=== PATIENT | female | born 1940 | race Caucasian/White ===

== ENCOUNTER 2020-12-05 09:14 | Day surgery (SDC) | payer MEDICARE, SELFPAY ==
[2020-11-30 10:31] VITALS: BMI 24.3
--- NOTE | 2020-12-01 13:52 | HO.ANESPROP2 ---
Documented by User: Taylor Preciado 12/01/20 13:53 HPI - Anesthesia Eval Consult details Narrative: 80yo F for Colonoscopy PMFSH Past Medical History Medical History Hypothyroidism Surgical History Surgical History History of esophagogastroduodenoscopy (EGD) History of surgery on right wrist History of tubal ligation Hx of appendectomy Hx of colonoscopy Hx of elbow surgery Social History Social History Advance Directives: No Advance Directives Information Provided: No Advance Directives on File: No Meds Allergies Allergy/AdvReac Type Severity Reaction Status Date / Time No Known Allergies Allergy Verified 11/30/20 10:29 Home Medications Medication Instructions Recorded Confirmed Last Taken Type levothyroxine 1 tab PO DAILY 11/30/20 11/30/20 Unknown History Exam Exam Date and Time: December 01, 2020 1352 Height,Weight and Vital Signs: Height 5 ft 1 in Weight 58.513 kg Assessment and Plan Assessment Anesthesia Assessment: Chart Reviewed Documented by User: Reina Mcleod 12/05/20 10:50 [facility] Past Medical History Medical History Hypothyroidism Family History Family history of problems with anesthesia: No Surgical History Surgical History History of esophagogastroduodenoscopy (EGD) History of surgery on right wrist History of tubal ligation Hx of appendectomy Hx of colonoscopy Hx of elbow surgery History of Problems with Anesthesia: No Social History Social History Advance Directives: No Advance Directives Information Provided: No Advance Directives on File: No Meds Allergies Allergy/AdvReac Type Severity Reaction Status Date / Time No Known Allergies Allergy Verified 11/30/20 10:29 Home Medications Medication Instructions Recorded Confirmed Last Taken Type levothyroxine 1 tab PO DAILY 11/30/20 11/30/20 Unknown History Exam Height,Weight and Vital Signs: Vital Signs Temp Pulse Resp BP Pulse Ox 12/05/20 10:26 99.2 F 68 20 142/72 H 97 Airway Mallampati Class: II TM Dist: >3cm Neck ROM: Full Heart: RRR Lungs: CTAB Assessment and Plan Assessment Anesthesia Assessment: Anesthesia Plan Discussed and Chart Reviewed Final Anesthetic Review NPO: Yes ASA Class: II Final Preanesthetic Review: No Changes in Pt Med Stat, Meds/Allgs Chart Reviewed, Consent Obtained/Reviewed and Anes Risks/Benef Reviewed Patient Risk: Low Procedure Risk: Low Assessment/Block/Sedation in SS: Assess/Block/Sedation-SS Anesthetic Plan Anesthetic Plan: MAC: Disposition: Standard PACU
[2020-12-05 10:26] VITALS: BP 142/72; PULSE 68; RESP 20; TEMP 37.3; O2SAT 97
[2020-12-05 10:39] VITALS: BP 142/72; PULSE 68; RESP 20; TEMP 37.3; O2SAT 97
[2020-12-05] MEDS: Lactated Ringers 1,000 ML 100 ML IVCONT (10:48)
--- NOTE | 2020-12-05 11:51 | PM.OP ---
Brief Operative Note Date of Service: 12/05/20 Pre-op diagnosis: Screening Post-op diagnosis: other (Diverticulosis, Internal hemorrhoids) Procedure: Colonoscopy to cecum Surgeon: Morro Lemus Anesthesia: MAC Estimated blood loss (mL): 0 Pathology: none sent Condition: stable Disposition: PACU
[2020-12-05 11:53] VITALS: BP 113/72; PULSE 82; RESP 12; TEMP 36.1; O2SAT 99
[2020-12-05 12:08] VITALS: BP 125/77; PULSE 60; RESP 16; TEMP 36.1; O2SAT 100
--- NOTE | 2020-12-05 12:09 | OP_ITS ---
SURGEON: Morro Lemus MD INDICATIONS: The patient presents for evaluation of colorectal cancer screening. Full consent has been obtained from her for this, including risks of bleeding and perforation. PREOPERATIVE DIAGNOSIS: Colorectal cancer screening. POSTOPERATIVE DIAGNOSIS: PROCEDURE PERFORMED: Colonoscopy to the cecum. ESTIMATED BLOOD LOSS: COMPLICATIONS: ANESTHESIA: Monitored anesthesia care. ASSISTANTS: SPECIMENS: POSTOPERATIVE DIAGNOSES: Colorectal cancer screening, diverticulosis, and internal hemorrhoids. DESCRIPTION OF PROCEDURE: The patient was placed in the left lateral decubitus position. The digital rectal exam revealed no abnormalities. The Olympus video pediatric colonoscope was entered into the rectum and advanced easily to the cecum. Once in the cecum, I did identify normal-appearing cecal pouch with appendiceal orifice and a normal-appearing ileocecal valve. The entire cecum and ileocecal valve appeared normal. There was transillumination of light deep in the right lower quadrant. The scope was slowly withdrawn assessing all mucosal surfaces carefully. Preparation was excellent. I did not visualize any sign of polyps, colitis, nor angiodysplasia. There was a mild amount of sigmoid diverticulosis. In the rectum, scope was retroflexed visualizing internal hemorrhoids, but no other pathology. The rectal mucosa appeared normal. The scope was straightened out and withdrawn from the patient. She tolerated the procedure well and was returned to the recovery area in stable condition. IMPRESSION: 1. Diverticulosis. 2. Internal hemorrhoids. PLAN: Given the patient's negative exam and her age, I do not think she will need any further screening colonoscopies in the future. She will otherwise see me on a p.r.n. basis. MD URBANO Mandujano/MODL / [id number]
== END 2020-12-05 12:56 | disposition home or self-care (01) ==
PROVIDERS: PCP Nurse Practitioner Family; Visit Provider Internal Medicine
PROC: 0DJD8ZZ Inspection of Lower Intestinal Tract, Via Natural or Artificial Opening Endoscopic (ICD-10-PCS; CPT 45378; principal; 2020-12-05 10:20)
DX: Z12.11 Encounter for screening for malignant neoplasm of colon (principal); K57.30 Diverticulosis of large intestine without perforation or abscess without bleeding; K64.8 Other hemorrhoids; Z80.0 Family history of malignant neoplasm of digestive organs
CPT/HCPCS: G0105